=== PATIENT | female | born 1950 | race Caucasian/White ===

== ENCOUNTER 2017-08-14 00:59 | Inpatient (IN) | payer OTHER ==
[~2017-08-14] VITALS: Ht 177.8 cm; Wt 59.0 kg
[~2017-08-14 00:59] MED LIST: CALCIUM 500 +1 EAC5 PO; FA-80.8 MG PO; LEVOTHYROXINE100 MC1 PO; MERIBIN5 M1 PO; MULTIVITAMINS1 EAC9 PO
--- NOTE | 2017-08-14 17:47 | Operative Report ---
Operative/Inv Procedure Report Surgery Date: 08/14/17 Name of Procedure: Robotic proctopexy with sigmoid resection Pre-Operative Diagnosis: Rectal prolapse Post-Operative Diagnosis: Rectal prolapse Estimated Blood Loss: less than 50ml Surgeon/Coil Winding Supervisor: Abhinav Peña Jr., DO certified first assistant Anesthesia: general endotracheal tube Monitors: Per routine Implants: None Urine Output: Adequate Drains: None Specimens: Sigmoid colon Complications: None Condition: Good Operative Indication: This 66-year-old female with full-thickness rectal prolapse. He is very vigorous and healthy person. She mainly experiences prolapse when performing vigorous exercise. Because her age and physical fitness I recommended a transabdominal approach. Was scheduled for rectopexy with likely sigmoid resection. On the day before her operation she did a bowel prep at home including oral laxatives and oral antibiotics Operative/Procedure Note Note: On the morning before her operation she drinks 12 ounces apple juice per ERAS protocol When she arrived to [facility] she was given the usual ERAS medications She was taken into the operating room placed in supine position on the operating room table. She underwent induction of general anesthesia and placement of Frankel catheter. At this point bilateral tap block performed by the anesthesia department. She was converted to lithotomy position in Clayton stirrups , secured to the bed with her arms tucked and then the abdomen and perineum were prepped and draped in usual fashion. We gained access to the abdominal cavity using a Veress needle technique the Veress needle was inserted in the midclavicular line subcostal on the left. The abdomen was insufflated to 50 mmHg and then the ports were placed. The ports were placed on the line drawn between the midclavicular line on the left and the right lower quadrant all about 8 cm apart. The #1, #2, and #3 ports were 8 mm da Roland ports. The #4 port was a 12 mm da Roland stapler port. A right lower quadrant 8 mm aerocele certified first assistant port was placed. The patient was placed in Trendelenburg right side down and the small bowel swept out of the pelvis. Unexpectedly a subtle evidence of previous bouts severe diverticulitis. Her sigmoid colon was densely adherent in the pelvis in the left lower quadrant consistent with previous perforation. At this point the robot was docked. I began with lysis of adhesions. I did lysis of adhesions lasting probably 30 minutes to get all the abnormal adhesions between the colon pelvis and left lower quadrant taken down. During this process I dissected out and I didn't then a 5 the left ureter which was left uninjured. Next the rectosigmoid was grasped and elevated towards the anterior abdominal wall. Incised the peritoneum to the right of the rectosigmoid at the level sacral promontory. I entered the posterior rectal avascular . I followed the space all the way down to the levators posteriorly. The lateral stalks were then taken down on the right side first with the robotic vessel sealer. To the left lateral stalks down with the robotic vessel sealer. My planned resection was right at the sacral promontory. Patient had very excess redundant bowel slip pulled down the bowel and marked the bowel for my proximal transection by placing a stitch robotically. I divided the mesentery distally on the bowel with robotic vessel sealer till I reached the area of my proposed transection. Next I cleared the mesentery at the rectosigmoid [place] with the electrocautery and partly with robotic vessel sealer. Once the rectal wall was completely exposed a used a robotic 45 mm blue MITZY stapler to divide the bowel. The bowel was then grasped with a locking grasper and the pneumoperitoneum was let down. A 4 cm Pfannenstiel incision was created 2 fingerbreadths above the pubic symphysis. A wound protector was placed through this incision and the transected bowel was pulled up through this incision. The stitch were I had marked the bowel proximal transection site was identified. We did clear some additional mesentery with electrocautery and ligate some small blood vessels with 2-0 Vicryl suture. I sharply divided the bowel. The specimen was sent for routine path. The specimen clearly had evidence of recurrent diverticulitis and probable perforation. Next the handsewn procedure was performed with 2-0 Prolene. A 28 EEA stapler was selected for the anastomosis. The anvil was placed into the lumen of the bowel and the [place] was tied snugly around the PEG of the anvil. The bowel was reduced back into the abdominal cavity. The Was placed on the wound protector and the pneumoperitoneum was reestablished. EEA sizers and then the 28 EEA stapler passed transanally. Once the stapler was in the appropriate position the spike was advanced through the rectal wall. It emerged slightly to the right of midline and posterior to the MITZY staple line. The 2 ends of the stapling device were scopic leading mated and the stapler was completely closed and allowed to settle. The stapler was armed fired opened and retrieved. I had 2 excellent donuts on the stapling device. The pelvis was filled with sterile saline. The bowel was gently occluded above the anastomosis. A rigid sigmoidoscopy performed the anastomosis was clearly visible was patent and appeared sound and no bleeding. There was no bubbling of air at the anastomotic staple line. The fluid was aspirated from the pelvis. Next the robot was redox. And I prepared to do the rectopexy. A 2-0 silk suture was used to pack the right lateral stalk to the sacral promontory in a U stitch fashion. 2 additional 2-0 silk sutures were placed simply on either side of the stitch once again tacking the lateral stalk to the sacral promontory. The mesenteric defect was then closed with a running 20V LOC absorbable suture and affect re-creating the right lateral stalk. At this point the procedure was concluded and we prepared for closure. Ports were removed under direct visualization of the laparoscope. The peritoneum at the Pfannenstiel site was closed with a running 2-0 suture. The fascia was closed with a running 0 PDS suture. Subcutaneous tissues were copiously irrigated and then the skin was closed with khurram. The port sites were closed subcuticular 4-0 Monocryl and then Dermabond skin glue. The abdomen was cleansed and dried and a small island dressing was placed at the Pfannenstiel incision. The patient was converted back to the supine position. She's exiting operating room and taken recovery area in good condition. At the end of this operational needle sponges and instruments were accounted for. Findings: Evidence of previous diverticulitis in the resected sigmoid colon Discharge Disposition: Same Day Admissions
[2017-08-14 19:00] VITALS: BP 122/80
[2017-08-14 21:00] VITALS: BP 122/70
[2017-08-14 23:00] VITALS: BP 120/62
[2017-08-15 01:00] VITALS: BP 106/58
[2017-08-15 05:00] VITALS: BP 118/66
[2017-08-15 09:06] LABS: ABSOLUTE BASOPHIL COUNT 0 /CUMM (0.0-0.2); ABSOLUTE EOSINOPHIL COUNT 0 /CUMM (0.0-0.7); ABSOLUTE GRANULOCYTE CT 5.3 /CUMM (1.4-6.5); ABSOLUTE LYMPH COUNT 1.5 /CUMM (1.2-3.4); ABSOLUTE MONOCYTE COUNT 0.7 /CUMM (0.10-0.60); BASOPHIL % 0.3 % (0.0-2.0); EOSINOPHIL % 0.1 % (0-5); GRANULOCYTE % 70.4 % (42.2-75.2); MEAN CORPUSCULAR HGB 31.7 PG (27.0-31.0); MEAN CORPUSCULAR HGB CONC 33.9 G/DL (33.0-37.0); MEAN CORPUSCULAR VOLUME 93.7 FL (81.0-99.0); MEAN PLATELET VOLUME 8.4 FL (7.4-10.4); PLATELET COUNT 226 /CUMM (130-400); RBC DISTRIBUTION WIDTH 13.9 % (11.5-14.5); RED BLOOD CELL CT 3.42 /CUMM (4.20-5.40); WHITE BLOOD CELL COUNT 7.6 /CUMM (4.8-10.8)
--- NOTE | 2017-08-15 11:05 | PN- General Surgery ---
See Addendum Subjective Subjective: Awake, alert Sitting up in bed torating liquids Pain is well controlled - denies any pain at all at this time No nausea +flauts/ no bm Objective Vital Signs and I&Os Vital Signs Date Time Temp Pulse Resp B/P B/P Pulse O2 O2 Flow FiO2 Mean Ox Delivery Rate 08/15 0500 98.1 77 18 118/66 99 Nasal 2.0L Cannula 08/15 0100 97.8 71 18 106/58 96 Nasal Cannula 08/15 0000 97 Nasal 2.0L Cannula 08/14 2300 98.0 78 18 120/62 99 Nasal Cannula 08/14 2100 97.6 82 18 122/70 100 Nasal Cannula 08/14 1956 100 Nasal 2.0L Cannula 08/14 1900 95.1 79 16 122/80 100 Nasal 3.5L Cannula 08/14 1830 97.7 18 Intake & Output 08/15 1600 08/15 0800 08/15 0000 08/14 1600 08/14 0800 08/14 0000 Intake Total 950 660 Output Total 900 100 Balance 50 560 Intake, IV 600 300 Intake, Oral 350 360 Output, Urine 900 100 Patient 130 lb Weight Weight Reported by Patient Measurement Method Physical Exam: vss, afebrile General: alert and oriented times three Chest; clear anteriorly bilaterally, RRR Abd: softly distended, positive bs, Ext; warm, no edema Wds: all look good, dressing clean and dry Assessment/Plan Assessment/Plan 66yo female pod 1 s/p robotic rectopexy/sigmoidectomy pain management - eras protocol ambulate advance to full liquid diet and dc ivf fu labs Core Measures Venous Thromboembolism VTE Risk Factors Surgery No Mechanical VTE Prophylaxis d/t N/A MechProphylax Ordered No VTE Pharm Prophylaxis d/t NA PharmProphylax ordered
[2017-08-15 11:48] VITALS: BP 118/70
[2017-08-15 15:26] VITALS: BP 110/60
[2017-08-15 19:27] VITALS: BP 110/70
[2017-08-15 21:36] VITALS: BP 110/68
[2017-08-16 06:20] VITALS: BP 120/62
--- NOTE | 2017-08-16 07:30 | Patient Discharge Instructions ---
Discharge Instructions General Discharge Information You were seen/treated for: Rectal prolapse You had these procedures: Robotic rectopexy/sigmoidectomy Watch for these problems: Fever over 100.4 Drainage from wounds Redness or swelling around wounds Increased abdominal pain Chest pain, shortness of breath Increased blood in stool Call Surgeon to remove: Other No bath, but you may shower: Yes Other wound care: Keep wounds clean and dry Special Instructions: Daily dry dressing change Diet Recommended Diet: Low Residue Activity Activity Self Limited: Yes Other activity limits: No heavy lifting greater than 10 pounds Acute Coronary Syndrome Inclusion Criteria At DC or during hospital stay patient has or had the following: ACS DIAGNOSIS No Discharge Core Measures Meds if any: Prescribed or Continued at Discharge Meds if any: NOT Prescribed or Continued at Discharge Congestive Heart Failure Inclusion Criteria At DC or during hospital stay patient has or had the following: CHF DIAGNOSIS No Discharge Core Measures Meds if any: Prescribed or Continued at Discharge Meds if any: NOT Prescribed or Continued at Discharge Cerebrovascular accident Inclusion Criteria At DC or during hospital stay patient has or had the following: CVA/TIA Diagnosis No Discharge Core Measures Meds if any: Prescribed or Continued at Discharge Meds if any: NOT Prescribed or Continued at Discharge Venous thromboembolism Inclusion Criteria VTE Diagnosis No VTE Type NONE VTE Confirmed by (Test) NONE Discharge Core Measures - Per Current guidelines, there needs to be overlap - treatment for the first 5 days of Warfarin therapy. - If discharged on Warfarin prior to 5 days of - overlap therapy, the patient will need to be - assessed for post discharge needs including - *Post discharge parental anticoagulation - *Warfarin and/or parental anticoagulation education - *Follow up date to check INR post discharge At least 5 days overlap therapy as Inpatient No Meds if any: Prescribed or Continued at Discharge Note: Overlap Therapy is Warfarin and Anticoagulant Meds if any: NOT Prescribed or Continued at Discharge
--- NOTE | 2017-08-16 07:59 | PN- General Surgery ---
Subjective Subjective: Patient sitting in bed, no complaints. Some abdominal pain especially when she gets in and out of bed. Frankel was removed this morning patient is voiding spontaneously. Notes some blood in bowel movements. Tolerating full liquids, no nausea. Ambulating. Denies chest pain, shortness of breath, fevers, and headache Objective Vital Signs and I&Os Vital Signs Date Time Temp Pulse Resp B/P B/P Pulse O2 O2 Flow FiO2 Mean Ox Delivery Rate 08/16 0620 97.7 60 18 120/62 96 Room Air 08/15 2136 98.4 69 18 110/68 96 08/15 1927 98.4 74 18 110/70 96 08/15 1526 98.5 69 18 110/60 98 08/15 1148 97.4 69 20 118/70 100 Intake & Output 08/16 0800 08/16 0000 08/15 1600 08/15 0800 08/15 0000 08/14 1600 Intake Total 960 827 2406 950 660 Output Total 1000 1350 1700 900 100 Balance -500 -750 -575 50 560 Intake, IV 225 600 300 Intake, Oral 500 600 900 350 360 Number 1 Bowel Movements Output, Urine 1000 1350 1700 900 100 Patient 130 lb Weight Weight Reported by Patient Measurement Method Physical Exam: Generalno acute distress Respirationsclear bilaterally Cardiacregular rate and rhythm Abdomennondistended, positive bowel sounds, tender around incisions. Incisions clean and dry with minimal drainage. Bandar in place on lower abdominal incision, no signs of infection. Dressing changed with clean dry dressing Extremitieswarm and dry, no calf tenderness Current Medications: Current Medications Sig/Marilyn Start time Last Medication Dose Route Stop Time Status Admin Acetaminophen 1,000 MG .STK-MED ONE 08/15 2040 DC PO 08/15 204 Acetaminophen 1,000 MG .STK-MED ONE 08/15 1431 DC PO 08/15 1432 Acetaminophen 1,000 MG .STK-MED ONE 08/15 0858 DC PO 08/15 0859 Acetaminophen 1,000 MG TID 08/14 2099 AC 08/15 PO 2044 Alvimopan 12 MG BID 08/14 2100 DC 08/15 PO 2044 Dextrose/Sodium 1,000 ML Q13H 08/14 1900 DC 08/15 Chloride IV 0606 Gabapentin 300 MG Q8 08/14 2199 AC PO Heparin Sodium 5,000 UNIT Q8 08/14 2199 AC 08/16 (Porcine) SC 0557 Levothyroxine Sodium 0.1 MG DAILY AC 08/15 07 AC 08/16 PO 0557 Multivitamins 1 TAB DAILY 08/15 09 AC 08/15 PO 0857 Ondansetron HCl 4 MG Q6P PRN 08/14 1899 AC IV Oxycodone HCl 5 MG Q6P PRN 08/14 1899 AC PO Oxycodone HCl 10 MG Q6P PRN 08/14 1899 AC PO Pantoprazole Sodium 40 MG DAILY 08/15 899 AC 08/15 IV 09 Tramadol HCl 50 MG Q6P PRN 08/14 1899 AC PO Tramadol HCl 100 MG Q6P PRN 08/14 1899 AC PO Results Last 48 Hours of Labs: Laboratory Tests 08/15 621 Chemistry Sodium (137 - 145 mmol/L) 135 L Potassium (3.5 - 5.1 mmol/L) 4.3 Chloride (98 - 107 mmol/L) 99 Carbon Dioxide (22 - 30 mmol/L) 28 Anion Gap (5 - 16) 7 BUN (7 - 17 mg/dL) 8 Creatinine (0.5 - 1.0 mg/dL) 0.8 Estimated GFR (>60 ml/min) > 60 BUN/Creatinine Ratio (7 - 25 %) 10.0 Hematology CBC w Diff NO MAN DIFF REQ WBC (4.8 - 10.8 /CUMM) 7.6 RBC (4.20 - 5.40 /CUMM) 3.42 L Hgb (12.0 - 16.0 G/DL) 10.9 L Hct (37 - 47 %) 32.0 L MCV (81.0 - 99.0 FL) 93.7 MCH (27.0 - 31.0 PG) 31.7 H MCHC (33.0 - 37.0 G/DL) 33.9 RDW (11.5 - 14.5 %) 13.9 Plt Count (130 - 400 /CUMM) 226 MPV (7.4 - 10.4 FL) 8.4 Gran % (42.2 - 75.2 %) 70.4 Lymphocytes % (20.5 - 51.1 %) 19.5 L Monocytes % (1.7 - 9.3 %) 9.7 H Eosinophils % (0 - 5 %) 0.1 Basophils % (0.0 - 2.0 %) 0.3 Absolute Granulocytes (1.4 - 6.5 /CUMM) 5.3 Absolute Lymphocytes (1.2 - 3.4 /CUMM) 1.5 Absolute Monocytes (0.10 - 0.60 /CUMM) 0.7 H Absolute Eosinophils (0.0 - 0.7 /CUMM) 0 Absolute Basophils (0.0 - 0.2 /CUMM) 0 Assessment/Plan Assessment/Plan 66-year-old female status post robotic rectopexy, sigmoidectomy postop day 2. Stable Advanced to low residue diet today DC Entereg, patient having bowel movements DC Frankel Encourage incentive spirometer and ambulation DVT prophylaxisheparin subcu Pain management Daily dry dressing change Regular home meds DC planninglikely home later this afternoon if she tolerates her low residue diet We will discuss with attending Core Measures Venous Thromboembolism VTE Risk Factors Surgery No Mechanical VTE Prophylaxis d/t N/A MechProphylax Ordered No VTE Pharm Prophylaxis d/t NA PharmProphylax ordered
[2017-08-16 11:17] LABS: ABSOLUTE BASOPHIL COUNT 0 /CUMM (0.0-0.2); ABSOLUTE EOSINOPHIL COUNT 0.1 /CUMM (0.0-0.7); ABSOLUTE GRANULOCYTE CT 4.5 /CUMM (1.4-6.5); ABSOLUTE LYMPH COUNT 1.4 /CUMM (1.2-3.4); ABSOLUTE MONOCYTE COUNT 0.6 /CUMM (0.10-0.60); BASOPHIL % 0.4 % (0.0-2.0); EOSINOPHIL % 1.7 % (0-5); GRANULOCYTE % 67.7 % (42.2-75.2); HEMATOCRIT 33.6 % (37-47); MEAN CORPUSCULAR HGB 31.6 PG (27.0-31.0); MEAN CORPUSCULAR HGB CONC 33.8 G/DL (33.0-37.0); MEAN CORPUSCULAR VOLUME 93.4 FL (81.0-99.0); MEAN PLATELET VOLUME 8.5 FL (7.4-10.4); PLATELET COUNT 231 /CUMM (130-400); RBC DISTRIBUTION WIDTH 13.4 % (11.5-14.5); WHITE BLOOD CELL COUNT 6.6 /CUMM (4.8-10.8)
--- NOTE | 2017-08-16 14:08 | Surg Short-stay <48hrs Dis Sum ---
Visit Information Visit Dates Admission Date: 08/14/17 Discharge Date: 08/16/17 Surgical Short Stay DC Summary Admission Diagnosis: Rectal prolapse Final Diagnosis: Same Procedure(s): Robotic rectopexy/sigmoidectomy Summary/Significant Findings: Patient presented to [facility] on August 14, 2017 for an elective robotic rectopexy/sigmoidectomy by Dr. Peña. Patient tolerated the procedure well. Postoperatively, her Frankel was removed and she was voiding spontaneously, her pain was well managed, she was ambulating, and her dressings were changed. There was no signs of infection. Patient was cleared for discharge to home. Condition at Discharge: Good Discharge Disposition: home or self care Discharge instructions provided to patient/family: Yes Post discharge follow-up plan: Follow-up with Dr. Peña in 10 days
[2017-08-16 14:35] VITALS: BP 120/68
== END 2017-08-16 18:20 | DRG 331 ==
LOC: SDA 00:59 → ENRESERV 17:45 → ENTRNSPT 18:17 → EDTRNSPTSTS 18:28 → 2NA 18:41 → CMPTRNSPT 19:01 → ENPENDDIS 08-16 08:52 → 2NA 08-16 18:20
PROVIDERS: Nurse Practitioner; Physician Assistant Surgical
PROC: 0DNN4ZZ Release Sigmoid Colon, Percutaneous Endoscopic Approach (ICD-10-PCS; principal; 2017-08-14)
PROC: 8E0W4CZ Robotic Assisted Procedure of Trunk Region, Percutaneous Endoscopic Approach (ICD-10-PCS; principal; 2017-08-14)
PROC: 0DBN4ZZ Excision of Sigmoid Colon, Percutaneous Endoscopic Approach (ICD-10-PCS; principal; 2017-08-14)
PROC: 0DQP4ZZ Repair Rectum, Percutaneous Endoscopic Approach (ICD-10-PCS; principal; 2017-08-14)
PROC: 3E0T3BZ Introduction of Anesthetic Agent into Peripheral Nerves and Plexi, Percutaneous Approach (ICD-10-PCS; 2017-08-14)
DX: K62.3 Rectal prolapse (principal); K66.0 Peritoneal adhesions (postprocedural) (postinfection); Z90.89 Acquired absence of other organs; Z87.19 Personal history of other diseases of the digestive system; Z85.3 Personal history of malignant neoplasm of breast
CPT/HCPCS: 2NASP; 36415; 36592; 82436; 87086; C9290; J0690; J1100; J1200; J1644; J1885; J2405; J3490; J7042